=== PATIENT | male | born 1960 | race Caucasian/White ===

== ENCOUNTER 2017-02-11 16:02 | Inpatient (IN) | payer MEDICARE, OTHER ==
[~2017-02-11] VITALS: Ht 188 cm; Wt 147.6 kg
[2017-02-11 16:03] VITALS: BP 148/89; PULSE 98; RESP 15; O2SAT 97
--- NOTE | 2017-02-11 16:07 | ED.REPORT ---
HPI-Chest Pain 40 and Over Date of Service Feb 11, 2017 ED Provider: Jeronimo Hutchinson DO Patient is a 57 year old male with a hx of CAD s/p 5 stents and DM who presents to the ED via EMS complaining of L sided chest pain onset 1400 this afternoon. His pain is accompanied by pressure, rated a 7/10 in severity, and radiates to his jaw and shoulders. Associated symptoms include diaphoresis. Patient reports that this pain feels like when he has had a heart attack previously. He reports that nitro drips work best for his chest pain and his last admission for chest pain was in Jul-August at [facility]. He denies vomiting, headache, vision changes, numbness, focal weakness, fever, chills, or any other symptoms. He had 324mg ASA, Nitro x1, and morphine 10mg [employer]. Patient's last stress test was 7 mo ago. 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 His PCP recently took him off of all of his medications except isosorbide, insulin, and ASA. Nursing Notes Stated Complaint: CHEST PAIN Chief Complaint: Chest Pain Nursing Notes Reviewed: Yes Allergies: Coded Allergies: hydroxyzine (Verified Allergy, Unknown, 02/11/17) meperidine (Verified Allergy, Unknown, 02/11/17) General Time Seen by MD: 16:06 Chief Complaint Chest pain Hx Obtained From: Patient Arrived By: Ambulance Sudden in Onset?: Yes Onset Occurred: 1 - 4 hours ago Symptom Duration: Since onset Location: : Chest left Quality: Painful, Pressure Radiation: : Jaw: Shoulder left: Shoulder right Severity: Current: Severe Severity: Maximum: Severe Similar Sx Previous: Yes Risk Factors )( CAD Risk Stratification Known CADNo Hypertension Risk factors reviewed )( TAD Risk Stratification No Hypertension, No Risk factors reviewed )( PE Risk Stratification No , No , No Previous DVT, No Previous PE Risk factors reviewed HEART Score HEART for MACE Score: 4-7 (mod risk 12%-16.6%) (5) Past Medical History Past Medical History CAD DM Past Surgical History 5 stents CABG Bilat knee surg shoulder surg ankle Reports: Appendectomy, Tonsillectomy Smoking History Never Smoker Social History Alcohol Use: "Social" Drug Use: Denies drug use 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 Physical Exam Initial Vital Signs Vital Signs (First) Date Time Temp Pulse Resp B/P Pulse Ox O2 Delivery O2 Flow Rate FiO2 02/11/17 16:03 37.0 98 15 148/89 97 Room Air Initial VS: Reviewed, Vital signs abnormal Head / Eyes: Atraumatic, Normocephalic Skin: Warm, Dry Neurologic: Alert, Oriented, Nonfocal Psychiatric: Mood/affect normal, Behavior normal, Normal thought content General/Constitutional: Awake, Alert Distress / Hydration: Positive: Distress severe Appearance / Presentation: Positive: Obese Uncomfortable Respiratory / Chest: Atraumatic, Breath sounds NL, Breath sounds = bilat, No respiratory distress Cardiovascular: Heart rate NL, Regular rhythm, Heart sounds NL Lower Ext Edema: Positive: Bilateral 1+ Abdomen: Atraumatic, Soft, Non-tender Neck: Atraumatic, Supple, Full range of motion, No JVD Interpretation & Diagnostics Lab Results Interpretation Result Diagram: 02/11/17 1635 02/11/17 1635 Test 02/11/17 16:35 White Blood Count 8.4th/mm3 (3.8-10.1) Red Blood Count 5.09mil/mm3 (4.40-5.80) Hemoglobin 15.6g/dL (13.8-17.2) Hematocrit 45.8% (41.0-50.0) Mean Corpuscular Volume 90.0fL (81-100) Mean Corpuscular Hemoglobin 30.6pg (27.0-35.0) Mean Corpuscular Hemoglobin Concent 34.1% (32.0-37.0) Red Cell Distribution Width 14.0% (12.3-15.4) Platelet Count 250bil/L (150-400) Neutrophils (%) (Auto) 51.9% (40-74) Lymphocytes (%) (Auto) 31.3% (14-46) Monocytes (%) (Auto) 13.7% (4-12) Eosinophils (%) (Auto) 2.1% (0-5) Basophils (%) (Auto) 0.6% (0-3) Prothrombin Time 10.5sec (8.1-12.5) Prothromb Time International Ratio 0.98ratio Magnesium Level 2.0mg/dL (1.6-2.6) Hold Jeffers Top Tube Received (Received) ECG Interpretation ECG Interpretation: Sinus rate 99 anterior Q waves Time: 16:08 Interpreted by: ED physician ECG Interpretation: Sinus rate 92 unchanged from prior Time: 17:05 Interpreted by: ED physician X-Ray Chest Interpretation Chest Xray Interpretation: IMPRESSION: 1. Low lung volumes with vascular crowding versus mild pulmonary edema. Bibasilar atelectasis or consolidation are also present. Recommend a repeat PA and lateral study when clinically feasible. Dictated by: Naeem Gonzalez M.D. on 02/11/2017 at 17:07 Approved by: Naeem Gonzalez M.D. on 02/11/2017 at 17:11 View: Portable, 1 view Interpretation / Wet Read by: Interpret - Radiologist Re-Eval/Medical Decision Med Decision/Clinical Course Unstable angina in a patient with a known cardiac history. Nitroglycerin drip was initiated almost immediately after I evaluated the patient. Patient is also started on heparin, given metoprolol, Plavix, atorvastatin. Cardiology was contacted after the patient is requiring high doses of narcotics and IV nitroglycerin with little relief in his ongoing chest pain. Serial EKGs do not show any evidence of ST elevation GA. The patient will be admitted to critical care on nitroglycerin drip with plans for a urgent cardiology consult for probable angiography. Time of Eval: 16:58 Patient Status: Mild relief Re-Evaluation/Progress Note: Rechecked pt who is feeling slightly better. Time of Eval: 17:44 Re-Evaluation/Progress Note: Rechecked pt. Discussed plan for admission. Patient understands and agrees with plan. All questions addressed at this time. Consultation #1: Referral / Consult Name: Allen Dickerson MD Consulted With: Cardiology Call Returned at: 17:32 Note: Discussed pt's case. Requests consult with Dr. Hollis. Consultation #2: Referral / Consult Name: Eric Gomez MD Consulted With: Hospitalist Call Returned at: 17:[address]: Will see patient, Agrees with eval, Agrees with plan, Accepts admit Note: Discussed pt's case. Accepts admit. Consultation #3: Referral / Consult Name: Ermias Hollis MD Consulted With: Hospitalist Call Returned at: 17:[address]: Will see patient, Agrees with eval, Agrees with plan Note: Discussed pt's case. Will see pt. Counseled Regarding: Diagnosis, Lab results, Need for admission Discharge & Departure Primary Impression: Unstable angina Disposition: ADMITTED TO HOSPITAL Discharge Condition All VS Reviewed: Yes Condition: Stable Crit Care Except Billable Proc Time Spent: 75-104 minutes Services Performed: Patient management by me, Time spent at bedside, Reviewing test results Critical Care Notes: 88 minutes Scribe Attestation Portions of this note were transcribed by Abeba Langston. I, Dr. Hutchinson personally performed the history, physical exam and medical decision-making; I reviewed and confirmed the accuracy of the information in the transcribed note. Signed: Darrin Sepulveda, 02/11/17 EvangelinaJeronimo Divya JUDD Feb 11, 2017 16:07 ABEBA LANGSTON Feb 11, 2017 16:17 drip was initiated almost immediately after I evaluated the patient. Patient is also started on heparin, Time of Eval: 16:58 Patient Status: Mild relief Re-Evaluation/Progress Note: Rechecked pt who is feeling slightly better. Time of Eval: 17:44 Re-Evaluation/Progress Note: Rechecked pt. Discussed plan for admission. Patient understands and agrees with plan. All questions addressed at this time. Consultation #1: Referral / Consult Name: Allen Dickerson MD Consulted With: Cardiology Call Returned at: 17:32 Note: Discussed pt's case. Requests consult with Dr. Hollis. Consultation #2: Referral / Consult Name: Eric Gomez MD Consulted With: Hospitalist Call Returned at: 17:[address]: Will see patient, Agrees with eval, Agrees with plan, Accepts admit Note: Discussed pt's case. Accepts admit. Consultation #3: Referral / Consult Name: Ermias Hollis MD Consulted With: Hospitalist Call Returned at: 17:[address]: Will see patient, Agrees with eval, Agrees with plan Note: Discussed pt's case. Will see pt. Counseled Regarding: Diagnosis, Lab results, Need for admission Discharge & Departure Primary Impression: Unstable angina Disposition: ADMITTED TO HOSPITAL Discharge Condition All VS Reviewed: Yes Condition: Stable Crit Care Except Billable Proc Time Spent: 75-104 minutes Services Performed: Patient management by me, Time spent at bedside, Reviewing test results Critical Care Notes: 88 minutes Scribe Attestation Portions of this note were transcribed by Abeba Langston. I, Dr. Hutchinson personally performed the history, physical exam and medical decision-making; I reviewed and confirmed the accuracy of the information in the transcribed note. Signed: Darrin Sepulveda, 02/11/17 Jeronimo Hutchinson DO Feb 11, 2017 16:07 ABEBA LANGSTON Feb 11, 2017 16:17
[2017-02-11] MEDS ORDERED: Ondansetron 2 mg/mL 2 mL Inj IVPUSH PRN ×2 (16:25→17:50)
[2017-02-11] MEDS: HYDROmorphone 1 mg/mL Inj IVPUSH PRN ×2 (16:36→17:32)
[2017-02-11] MEDS: Nitroglycerin 50 mg/250 mL D5W 50,000 MCG in IV Premix 1 EACH IV SCH (16:40)
[2017-02-11 16:42] VITALS: BP 127/82; PULSE 94; RESP 16; O2SAT 94
[2017-02-11 16:58] LABS: BASOPHILS % (AUTO) 0.6 % (0-3); EOSINOPHILS % (AUTO) 2.1 % (0-5); MONOCYTES % (AUTO) 13.7 % (4-12); Mean Corpuscular Hemoglobin 30.6 pg (27.0-35.0); NEUTROPHILS % (AUTO) 51.9 % (40-74); Platelet Count 250 bil/L (150-400)
--- NOTE | 2017-02-11 17:12 | DRSVH ---
PROCEDURE: X-RAY CHEST ONE VIEW, PORTABLE ([id number]) INDICATIONS: Chest pain TECHNIQUE: One view of the chest was acquired. COMPARISON: None. FINDINGS: Surgical changes and devices: None. Lungs and pleura: No pleural effusions or pneumothorax. There are low lung volumes. There is mild pulmonary vascular prominence which may be due to vascular crowding or mild edema. Medial retrocardi ac opacities are also present which may represent atelectasis this. Mediastinum: Mediastinal contours appear prominent likely due to low volumes. Heart size is normal. Bones and chest wall: No suspicious bony lesions. Overlying soft tissues appear unremarkable. IMPRESSION: 1. Low lung volumes with vascular crowding versus mild pulmonary edema. Bibasilar atelectasis or co nsolidation are also present. Recommend a repeat PA and lateral study when clinically feasible. Dictated by: Naeem Gonzalez M.D. on 02/11/2017 at 17:07 Approved by: Naeem Gonzalez M.D. on 02/11/2017 at 17:11
[2017-02-11 17:14] LABS: INR 0.98 ratio
[2017-02-11 17:17] LABS: TROPONIN T < 0.010 ug/L (0.0-0.011)
[2017-02-11] MEDS ORDERED: Heparin 5,000 Unit/mL Inj IVPUSH ONE (17:30)
[2017-02-11] MEDS ORDERED: Heparin 25K Unit/500mL 0.45 NS 25,000 UNIT in IV Premix 1 EACH IV ONE (17:30)
[2017-02-11] MEDS ORDERED: Polyethylene Glycol (PEG) 17 Gm Powder PO PRN (17:50)
[2017-02-11] MEDS: Sodium Chloride LOK Flush 10 mL Syringe IVFLUSH SCH ×2 (17:59→23:32)
--- NOTE | 2017-02-11 18:10 | PCM.HPMED ---
Subjective Date of Service Feb 11, 2017 Primary Provider: Admitting Physician: Eric Gomez MD Primary Care Physician: [facility] Attending Physician: Eric Gomez MD Admit Status: From the Emergency Department, Full Admit, Critical Care Chief Complaint: Chest pain History of Present Illness: This is a 49-year-old male recently moved to [place] to his had 5 coronary stents . He states this all happened in [place] prior to his move. He was recently seen at [facility] and they stopped all his cardiac medications for unclear reasons. The patient notes that he is still taking his diabetes medications, and Lyrica as well as aspirin. He developed chest pressure today while at rest. This began around 2:30 this afternoon describes a chest pressure which was constant and radiated to the jaw and shoulder blades bilaterally. He also became diaphoretic. The pain was not positional nor was increased with deep breathing. He did not feel lightheaded or nauseated. The patient called the ambulance was brought to the emergency department. A nitroglycerin drip was started and this did help diminish the pain as did pain medications. This pain does feel typical for his previous chest pain episodes. The patient is a very vague historian. He denies recent dyspeptic symptoms. He also denies recent exertional chest pain or dyspnea on exertion. His ECG was fairly unremarkable. The patient was started on heparin and discussed with cardiology. He is yet to be seen by cardiology. Review of Systems: He denies recent fevers chills, rhinorrhea. No diarrhea, constipation or blood per rectum. No difficulty urinating. He does have chronic edema but denies heart failure. He denies kidney disease. All else reviewed and otherwise unremarkable except as noted in the history of present illness Allergies Coded Allergies: hydroxyzine (Verified Allergy, Intermediate, BLOTCHES, 02/11/17) meperidine (Verified Adverse Reaction, Severe, RESPIRATORY FAILURE, 02/11/17 ) Home Medications Aspirin one half of a baby aspirin a day. Metformin unknown dose twice a day. Lyrica unknown dose twice a day. Fish oil unknown dose daily. PMH Coronary artery disease with a stated history of 5 coronary stents. Diabetes mellitus 2 Diabetic peripheral neuropathy Obesity Surgical History Bilateral knee replacements, appendectomy, right ankle surgery, coronary artery bypass grafting. Family History Negative for CAD. Social History Hx Alcohol Use: Yes (socially) Hx Substance Use: No Smoking Status: Never Smoker Living Arrangement: with Family Exam Vital Signs Vital Sign - Last Date Time Temp Pulse Resp B/P Pulse Ox O2 Delivery O2 Flow Rate FiO2 02/11/17 16:42 94 16 127/82 94 Room Air 02/11/17 16:03 37.0 Exam Oriented 3. No distress. Fluent speech. Normal affect. Normal skull. Normal nose and ears. Anicteric sclera, symmetric pupils Oropharynx is unremarkable, no facial droop. Neck is supple, normal thyroid. No adenopathy. Lungs are clear, normal effort rate. Heart is regular without murmur gallop or rub. Abdomen soft, distended, nontender Extremities are free of pedal edema. Good radial and pedal pulses. Skin is free of rash, lesions. No petechiae or ecchymosis. Joints are grossly normal. Cranial nerves are grossly normal. Motor strength is normal in all extremities. Normal muscular tone. Neuro patient is somewhat obtuse and slow to answer questions. He is obese and has a very protuberant abdomen. Bilateral knee scars. Lab and Diagnostics Result Diagram: 02/11/17 1635 02/11/17 1635 X-Rays, CTs and MRIs Chest x-ray is low lung volumes otherwise unremarkable. 12-lead ECG Normal sinus rhythm without ST segment changes. Assessment & Plan 1. Unstable angina, present on admission and active. The patient will be maintained on dual antiplatelet agents beta-blockade heparin and nitro drip. We will trend troponins. Cardiology consult has been requested. 2. Coronary artery disease, present on admission and presumably active. Plan as above 3. Morbid obesity, present on admission active 4. Diabetes mellitus 2, present on admission and active. We will use at bedtime Lantus and correction of lispro check A1c 5. Peripheral neuropathy, present on admission and active. Will resume usual medications when these are ascertained. Patient is full resuscitation. Admitted to CCU (nitro drip), inpatient status with a length of stay of over 2 nights expected. Time spent 50 minutes Eric Gomez MD Feb 11, 2017 18:10
[2017-02-11] MEDS ORDERED: Glucose 40% Oral Gel 15 Gm Tube PO PRN (18:15)
[2017-02-11 18:46] LABS: TROPONIN T < 0.010 ug/L (0.0-0.011)
[2017-02-11 18:51] VITALS: BP 110/65; PULSE 97; RESP 10; O2SAT 97
[2017-02-11 18:54] LABS: Creatine Kinase 55 U/L (21-232)
[2017-02-11] MEDS ORDERED: LidocaineVisc 2%:Antacid 1:1 120 mL Suspension PO ONE (19:50)
[2017-02-11] MEDS ORDERED: OMEG-38 PO (20:04)
[2017-02-11] MEDS ORDERED: LIRA0.6P2 SQ (20:04)
[2017-02-11] MEDS ORDERED: INSU100V7 SUBQ (20:04)
[2017-02-11] MEDS ORDERED: ASPI325T32 PO (20:04)
[2017-02-11] MEDS ORDERED: PREG225C PO (20:04)
[2017-02-11] MEDS ORDERED: NOV100I SUBQ (20:04)
[2017-02-11] MEDS ORDERED: ISOS120T6 PO (20:04)
[2017-02-11] MEDS ORDERED: Heparin 5,000 Unit/mL Inj IVPUSH PRN (20:35)
[2017-02-11] MEDS ORDERED: Heparin 25K Unit/500mL 0.45 NS 25,000 UNIT in IV Premix 1 EACH IV SCH (20:35)
[2017-02-11 21:25] LABS: Creatine Kinase 53 U/L (21-232)
[2017-02-11] MEDS: Insulin LISPRO 300 Unit/3 mL Inj SUBQ SCH (21:54)
[2017-02-11] MEDS: Insulin GLARgine 100 Unit/mL Syringe SUBQ SCH (21:55)
[2017-02-11 22:00] VITALS: RESP 15
[2017-02-11] MEDS: HYDROcodone-APAP 5-325 mg Tablet PO PRN ×2 (22:40→23:33)
--- NOTE | 2017-02-11 22:52 | CONS ---
[address] [address] CONSULTATION REPORT PATIENT: MEETA LUNA : 1960 MR#: [id number] ADMIT: 02/11/2017 JOB ID: [id number] CARDIOLOGY CONSULTATION--URGENT INITIAL INPATIENT EVALUATION: DATE OF SERVICE: 02/11/2017 CONSULTING PHYSICIAN: Cardiology, Ermias Hollis MD. PROBLEMS: 1. Chest pain: a. Severe unremitting chest pain unresponsive to nitroglycerin at moderate to high dose. b. ECG near normal. c. Initial troponin not elevated twice. d. Consider ACS--atypical presentation. e. Note multiple recent prior episodes of severe chest pain evaluated at [facility] without apparent active coronary disease identified. 2. Coronary artery disease (CAD): History of five stents in LAD. The most recent cath, June 2016, said to be unremarkable for severe coronary lesions. CORONARY ARTERY DISEASE RISK FACTORS: Diabetes--insulin dependent; sequelae include: 1. Peripheral neuropathy. 2. History of hypertension. 3. History of hyperlipidemia. 4. No family history of premature coronary disease. 5. Lifetime nonsmoker. OTHER PROBLEMS: 1. Morbid obesity. 2. PRANEETH--obstructive sleep apnea, using CPAP. CHIEF COMPLAINT: Chest pain. HISTORY OF PRESENT ILLNESS: PRESENTATION: I am glad to meet this 57-year-old man who presented to the emergency department today by EMS coming from his home in [place]. He developed the sudden onset of severe (intensity 8 on a scale of 10) retrosternal chest discomfort at rest while watching TV this afternoon. He describes the chest discomfort as with both typical features including retrosternal chest discomfort radiating to the neck; but also atypical features including sharp knife-like, "like a garnett mechanic knife through my chest." There was mild diaphoresis and dyspnea, but no nausea. The chest discomfort remains mild to moderate in severity despite NTG at substantial doses up to 75 mcg/minute. NTG SL did not help significantly. He is otherwise clinically stable. He describes to me that he has episodes of chest discomfort that are sudden onset at rest and severe every several months. They are unremitting for several days, then clear. In between his episodes of chest discomfort and including recently for the last several months since his last episode in "August to October time frame," he has been fully active functional class 1 without effort related symptoms or effort limitation. His activities include vigorous "spin class" on bicycle without any difficulty. His symptoms today are similar to those previously. He does not feel that the symptoms represent indigestion or GI symptoms; and he notes that after his last episode he had extensive workup for reflux including esophageal manometry that he says was perfectly unremarkable. CARDIAC HISTORY: Regarding congestive heart failure, he has no history of heart failure, current symptoms of congestion including chronic dyspnea, exertional dyspnea, nocturnal dyspnea. He does have some edema that he attributes to association with his diabetic peripheral neuropathy. Regarding arrhythmia, he has known PVCs, "in strings of 4-5"; but no sustained tachy, palpitation, or other symptoms of arrhythmia such as presyncope or syncope. Regarding other possible underlying vascular disease, there is no history of CVA or current symptoms of TIA. No claudication at vigorous activity. Regarding possible dual antiplatelet therapy, he does not have any current bleeding symptoms; no upcoming anticipated surgery; and he reports he is reliable to take mandatory medicines as needed. PAST CARDIAC HISTORY: After extensive efforts, we were able to obtain some outside records from his care which has primarily been through the [facility] system including at the [facility] and [facility]. The records indicate multiple similar episodes of chest discomfort in 2017 following his most recent catheterization in June 2016 that was reassuring. The episodes of chest discomfort occurred in September, October, and November 2016, and apparently were felt to be noncardiac. In fact, there were efforts made to down titrate his cardiac medical therapy. The records also indicate: History of stents in LAD x5, last in 2011. The patient reports these were initially in [place], [place]. Then, in [place] near [place]. Cath in [place], November 2015, said to show left main normal, LAD patent stent with 10% mid vessel stenosis; then LCX no stenosis, then RCA 20% proximal stenosis, then ramus normal, and EF 70%. Myocardial perfusion scan at rest on March 13, 2016 said to demonstrate small perfusion defect in the basal and mid segments of inferior wall obtained only at rest during chest pain. Echocardiogram, March 2016, with no LVH, EF 70%. No wall motion abnormality. Note that during the admissions for chest pain, troponins were all repeatedly not elevated. ALLERGIES: Allergies reported to: 1. HYDROXYZINE. 2. MEPERIDINE. I elicit no history of allergy to medical contrast; or to seafood, fish, iodine, or shellfish. MEDICATIONS: Isosorbide mononitrate-ER 120 mg daily, omega-3 fish oil, ASA 325 mg daily, pregabalin 225 mg b.i.d., insulin NovoLog 4 units subcu t.i.d. with meals, insulin glargine 120 units subcu, liraglutide 1.8 mg subcu h.s., Plavix 75 mg p.o. daily--previously discontinued, metoprolol tartrate 25 mg p.o. PAST MEDICAL HISTORY: Bilateral knee replacements, appendectomy, right ankle "reconstruction." REVIEW OF SYSTEMS: I questioned him about a 13 point review of systems, which is unremarkable, noncontributory, or negative except as noted including: He reports some weight loss. No history of thyroid disorder. No history of lung disorder, including asthma, wheezing, or COPD. No history of GI disorder, including indigestion, hepatitis, jaundice, or ulcer. No history of genitourinary disorder or prostate symptoms. PERSONAL AND SOCIAL HISTORY: Alcohol: Reports little to no alcohol use. He lives in [place]. He is a retired medic. FAMILY HISTORY: He reports no family history of premature coronary disease. PHYSICAL EXAMINATION: General appearance: Pleasant, well-developed, morbidly obese man who appears in no distress despite his report of ongoing moderate chest discomfort. He stutters, which he reports is chronic lifetime, stable. Vital signs: Blood pressure 110/65, with heart rate 97 (regular in sinus rhythm on telemetry). Respiratory rate 15 and unlabored with SpO2 97% on 2 L nasal cannula. Afebrile. Weight 148 kg. Neurologic and mental status: No overt focal neurologic defect noted. He is alert, oriented, appropriate, and conversant. HEENT: PERRL, conjunctivae pink. Sclerae not icteric. Mouth and mucous membranes intact with intact dentition. Neck: Carotid upstroke difficult to feel due to body habitus, but no bruit bilaterally. Jugular venous pressure difficult to evaluate due to body habitus, but not overtly elevated. No palpable thyromegaly. No palpable cervical lymphadenopathy. Lungs: Clear to auscultation bilaterally including preserved forced expiratory time. Cardiac: No chest wall tenderness. Cardiac examination otherwise notable for distant heart sounds, regular rhythm, S4 gallop, and there is no loud murmur heard. Abdomen: Obese and otherwise unremarkable without tenderness, mass, hepatosplenomegaly, or bruit of abdominal aortic aneurysm. Extremities: Intact without pitting edema, but with some brawny edema. Dorsalis pedis pulse is strong bilaterally. DIAGNOSTIC STUDIES: Electrocardiogram: The admitting ECG shows sinus rhythm at 92 BPM, mild NS ST-T abnormalities, but not definitely outside normal limits; and overall very unremarkable in association with his current ongoing chest discomfort. Chest x-ray: The chest x-ray shows borderline cardiomegaly; but there does appear to be pulmonary venous congestion and heart failure. Note, reports of prior outside x-rays were similar. LABORATORY: CBC includes WBC 8400 with hemoglobin 15.6, hematocrit 45.8, normal indices, and platelet count 250,000. Chemistries include potassium 4.6 with BUN 14, creatinine 0.67, glucose 96. Liver function tests mildly abnormal with AST 55, ALT 72, and alkaline phosphatase 153. Cardiac markers include troponin not elevated. On three measurements, less than 0.010, with CK total not elevated, 55. ASSESSMENT: I discussed the findings, impressions, and management considerations with him, as well as with the primary hospitalist team (including Dr. Gomez, Dr. Cramer, and Dr. Rose) including: Chest pain--ongoing severe chest pain despite NTG IV, but atypical scenario: 1. He has severe chest discomfort; however, there are no objective correlates of ischemia on the ECG, early serial troponins. 2. Despite initial concern for unremitting chest discomfort and consideration of early catheterization, the overall picture seems consistent with his multiple recent prior episodes that from the outside records appear to be considered of unknown etiology, but not representing active coronary disease even though he has a history of apparent prior known coronary artery disease with percutaneous coronary intervention of LAD. Since he is new to our system, there was consideration of early catheterization; but with all the data in mind, I elected not to proceed emergently to catheterization. So far, he appears to be clinically stable without evidence of evolving ischemia or cardiac injury. My estimate is low likelihood of active coronary disease. At the same time, the etiology of his severe chest discomfort is not entirely clear. Therefore, plan close observation and early response if there are other objective signs of ischemia. RECOMMENDATIONS: 1. OMT--guideline directed optimal medical therapy including ASA 81 mg daily; metoprolol; IV NTG, but may up titrate or decrease later empirically; and consider ANNABELLA inhibitor; and high-intensity statin regimen. 2. Consider myocardial perfusion scan when stable. 3. Rule out myocardial infarction protocol--ongoing close observation including serial troponin and ECGs. 4. Please reconsult if further concern for objective ischemia rises. 5. Your ongoing evaluation to elucidate any other possible underlying cause of his symptoms including your evaluation for pulmonary embolus, aortic dissection, or gastrointestinal etiologies (all of which appear unlikely). 6. Echocardiogram. 7. 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
[2017-02-12] VITALS (9 sets, daily range): BP systolic 100–129; BP diastolic 51–78; PULSE 74–83; RESP 12–19; O2SAT 90–96
[2017-02-12] MEDS: Nitroglycerin 50 mg/250 mL D5W 50,000 MCG in IV Premix 1 EACH IV SCH (02:03)
--- NOTE | 2017-02-12 02:33 | NUR ---
admit note pt received from er to ccu room 2010 just prior to plant operator/shift supervisor starting at 1900, hospitalist and hatch boss in to see pt, pt a/o times three, mildly anxious, c/o 6/10 left sided chest pain radiating to his scapula bilaterally, ekg done, ekg delayed few minute per RT due to pt being on the phone, no changes seen, md aware of results, gi cocktail given per md order, pt states discomfort unchanged, iv morphine given and pt states pain decreased from 6 to 5, ntg gtt continued t/o night 75-85mcg/min, bp low normal, po pain meds given when pt asked for more pain meds and iv morphine not due yet, md wanted to keep morphine dose q4hrs prn, md aware pt c/o chest discomfort continued through night, pt dozing intermittently, troponin /ck/ckmb negative times three so far, am labs ordered, heparin gtt per cardiac protocol, lab having a difficult time being able to do lab draw, pt difficult stick, no s/sx of bleeding, nonpitting ankle edema, left second toe with pressure ulcer, wound care consult done, denies n/v, abd round/soft, denies sob, ls- cl/decreased, sats on two liters o2 per nc=95-96%, pt placed on cpap overnight, sats on cpap=93-94%, see assessment charting, see ccu flow sheet, plan: monitor lab results, treat cp as appropriate, Addendum: 02/12/17 at 0620 by ANUPAM SALGADO RN paged with enz/troponin results neg, Addendum: 02/12/17 at 0643 by ANUPAM SALGADO RN order received to wean ntg gtt since enzymes and troponin negative, as charted earlier aware of pt c/o left cp, po pain meds took pain away during night and pt able to sleep for good three hours at a time,
[2017-02-12] MEDS: HYDROcodone-APAP 5-325 mg Tablet PO PRN (04:42)
[2017-02-12 04:52] LABS: BASOPHILS % (AUTO) 0.6 % (0-3); EOSINOPHILS % (AUTO) 2.2 % (0-5); MONOCYTES % (AUTO) 10.3 % (4-12); Mean Corpuscular Hemoglobin 30.8 pg (27.0-35.0); Mean Corpuscular Volume 90.6 fL (81-100); NEUTROPHILS % (AUTO) 52.8 % (40-74); Platelet Count 267 bil/L (150-400)
[2017-02-12 05:31] LABS: Creatine Kinase 46 U/L (21-232)
[2017-02-12] MEDS: Insulin LISPRO 300 Unit/3 mL Inj SUBQ SCH ×4 (07:49→21:27)
[2017-02-12] MEDS: Sodium Chloride LOK Flush 10 mL Syringe IVFLUSH SCH ×2 (07:50→16:30)
--- NOTE | 2017-02-12 10:12 | DRSVH ---
[facility] [address] [place] [address] Echocardiogram Report Name: MEETA LUNA KStudy Date: Height: 74 in Hospital Exam Location: [facility] Weight: 321 lb Gender: Male BSA: 2.7 m2 : 1960 Age: 57 yrs BP: 105/60 m mHg Reason For Study: Unstable Angina Ordering Physician: HOSPITALIST [facility] Performed By: Krista Davalos Referring Physician: LUZ MARIA HERNANDEZ Interpretation Summary The study quality was technically difficult. The left ventricle is grossly normal size. The ejection fraction is estimated to be 50-55%. Suspect mid posteriolateral wall hypokinesis. The right ventricle is grossly normal size. Right ventricular systolic function is at the lower limits of normal. There is mild tricuspid regurgitation. The right ventricular systolic pressure is estimated at 24 mmHg assuming a right atrial pressure of 8 mm Hg. Procedure: A two-dimensional transthoracic echocardiogram with color flow and Doppler was performed. The study quality was technically difficult. A contrast injection of Definity was performed to improve assessment of LV function. There is no prior echocardiogram noted for this patient. The patient was in normal sinus rhythm during the exam. Left Ventricle: The left ventricle is grossly normal size. Left ventricular wall thickness is mildly increased. The ejection fraction is estimated to be 50-55%. Suspect mid posteriolateral wall hypokinesis. Assessment of diastolic parameters indicates a relaxation abnormality of the left ventricle, consistent with normal filling pressures. Right Ventricle: The right ventricle is grossly normal size. Right ventricular systolic function is at the lower limits of normal. Atria: The left atrial size is normal. Right atrium not well visualized. Mitral Valve: The mitral valve leaflets appear mildly thickened, but open well. There is mild mitral annular calcification. The mitral valve leaflets are slightly calcified. There is trace mitral regurgitation. Aortic Valve: The aortic valve is trileaflet. The aortic valve opens well. There is no aortic valve stenosis. No aortic regurgitation is present. Tricuspid Valve: The tricuspid valve is not well visualized, but is grossly normal. There is mild tricuspid regurgitation. The right ventricular systolic pressure is estimated at 24 mmHg assuming a right atrial pressure of 8 mm Hg. Pulmonic Valve: The pulmonic valve is not well seen, but is grossly normal. There is trace pulmonic regurgitation. Great Vessels: The aortic root is normal size. The ascending aorta is normal in size. The IVC is of normal diameter and collapses less than 50% with a sniff. This suggests a right atrial pressure of 8 mm Hg. Pericardium/ Pleura There is no pericardial effusion. There is an anterior echo-free space consistent with a fat pad. There is no pleural effusion. MMode/2D Measurements & Calculations LVIDd: 4.4 cm LA A2 area LVOT diam LV west. diameter/BSA LVIDs: 3.1 cm (cm/m^2): 1.7 FS: 29.2 % Ao root diam IVSd: 1.3 cm LA A4 area LVPWd: 1.0 cm asc Aorta LA length Diam: 3.6 cm (vol): 5.2 cm LA vol: 14.4 ml LA vol index : 5.4 ml/m2 LV sys. diameter/BSA TAPSE: 1.8 cm (cm/m^2): 1.2 Doppler Measurements & Calculations Ao V2 max MV E max jeff MV E/A: 0.98 TR max jeff : 94.1 cm/sec : 62.4 cm/sec Med Peak E' Jeff : 201.6 cm/sec Ao max PG MV A max jeff TR max P.3 mmHg : 3.5 mmHg : 63.5 cm/sec E/E' med: 8.4 Ao mean PG Lat Peak E' Jeff LVOT Max Jeff E/E' lat: 7.5 : 83.8 cm/sec E/e' average: 8.0 PAVEL(I,D): 3.9 cm sev ratio MV dec time Ao V2 mean LV V1 max PG PAVEL indexed to BSA : 0.19 sec : 67.6 cm/sec (cm^2/m^2): 1.5 Ao V2 VTI LV V1 VTI: 15.8 cm PAVEL(V,D): 4.2 cm2 Reading Physician:EARLINE
--- NOTE | 2017-02-12 12:36 | PCM.PNMED ---
Subjective Date of Service Feb 12, 2017 Subjective He continues to elevate out of 10 chest pain. No EKG changes and negative troponins 3. Dr. Hollis is going to see him later this morning and is considering the probable stress test tomorrow. The patient denies any nausea or diaphoresis. No dyspnea. No abdominal pain or dyspepsia. No diarrhea. No overnight events noted. Exam Vital Signs Vital Sign - Last Date Time Temp Pulse Resp B/P Pulse Ox O2 Delivery O2 Flow Rate FiO2 02/12/17 08:00 37.1 80 16 100/51 95 Nasal Cannula 1.50 Intake and Output 02/11/17 02/11/17 02/12/17 Cumulative From/Thru 15:00 23:00 07:00 02/11/17 16:03 - 02/12/17 06:10 Intake Total 740 ml 1118 ml 1858 ml Output Total 750 ml 750 ml Balance 740 ml 368 ml 1108 ml Intake Oral 40 ml 600 ml 640 ml IV Total 700 ml 518 ml 1218 ml Output Urine Total 750 ml 750 ml # Bowel Movements 0 0 Exam Alert and oriented -3, no distress. Fluent speech Anicteric sclera. Lungs are clear with normal rate and effort Heart is regular without murmur gallop or rub Abdomen soft nontender, flat Extremities are free of edema. Skin is free of rash or lesions. IVs and Medications Medications Reviewed: Medications were reviewed in detail Lab and Diagnostics Result Diagram: 02/12/17 0445 02/11/17 1817 X-Rays, CTs and MRIs Chest x-ray is low lung volumes otherwise unremarkable. 12-lead ECG Normal sinus rhythm without ST segment changes. Assessment & Plan 1. Unstable angina, present on admission and active. We will continue medical therapy. The patient is on a heparin drip. We will discuss the plan with Dr. Hollis. He is indicated no angiogram at this point. We will feed the patient and anticipate a possible Lexiscan tomorrow morning. 2. Coronary artery disease, present on admission and presumably active. Plan as above, no changes. 3. Morbid obesity, present on admission active 4. Diabetes mellitus 2, present on admission and active. We will use at bedtime Lantus and correction of lispro check A1c 5. Peripheral neuropathy, present on admission and active. Will resume usual medications when these are ascertained. Patient is full resuscitation. Admitted to CCU (nitro drip), inpatient status with a length of stay of over 2 nights expected. Eric Gomez MD Feb 12, 2017 12:36
[2017-02-12] MEDS: oxyCODONE-Acetamin 5-325 mg Tablet PO PRN ×3 (14:29→22:31)
--- NOTE | 2017-02-12 16:10 | NUR ---
Social Work Note: Initial Assessment Data& Assessment: EMR reviewed. OUTREACH AND EDUCATION SOCIAL WORKER met with pt at bedside to discuss discharge planning, OUTREACH AND EDUCATION SOCIAL WORKER Role explained and discharge planning checklist packet provided. John Mosley is a 57 year old male admitted on 02/11/2017 for unstable angina. Pt has Medicare and [employer] life insurance coverage and goes to the [facility] for primary care, pt states he is 100% service connected. Pt lives in [place] with his spouse and is independent with all ADL's at baseline. Pt does not use any DME for ambulation and drives at baseline. Pt does use a CPAP machine. He does not have HH or SNF hx. Pt does not have LTC insurance. OUTREACH AND EDUCATION SOCIAL WORKER requested a copy of pt's completed DPOA/AD paperwork. MD does not identify any concerns for pt capacity for self care at this time. Pt denies any needs at this time. OUTREACH AND EDUCATION SOCIAL WORKER to continue to follow if any pt needs or MD orders arise. Plan: Anticipated discharge home via POV when medically ready. Pt denies any needs at this time. OUTREACH AND EDUCATION SOCIAL WORKER to continue to follow if any pt needs or MD orders arise. MIR Ba Addendum: 02/12/17 at 1613 by AFSHAN AYERS Amended: Links added.
--- NOTE | 2017-02-12 16:41 | PROG NOTE ---
[address] [address] PROGRESS NOTE PATIENT: MEETA LUNA : 1960 MR#: [id number] ADMIT: 02/11/2017 JOB ID: [id number] DATE: 02/12/2017 DATE OF EVALUATION: Sunday, February 12, 2017. CARDIOLOGY CONSULTATION PROGRESS NOTE--FOLLOWUP INPATIENT VISIT: CONSULTING PHYSICIAN: Cardiology--Ermias Hollis MD. PROBLEMS: 1. Chest pain: a. Ongoing severe chest discomfort which is atypical and unremitting after high dose NTG IV. b. Probable noncardiac chest pain--This is the 5th episode since September, all very similar with many negative troponin. 2. Known CAD: a. Known coronary disease--past medical history of multiple CAD stenting (apparently the last in 2011 in [place]). HOSPITAL COURSE AND PROGRESS: Hospital day two. I am glad to see this 57-year-old man on Cardiology rounds today, along with the primary hospitalist team (Dr. Gomez). The patient has been overall unchanged overnight--which is to say he remains clinically stable with ongoing severe chest pain. The chest pain was not improved by high dose NTG IV; nor did it worsen when NTG IV was discontinued. MEDICATIONS: Medications reviewed includin. ASA. 2. Lipitor 40 mg q.i.d. 3. Plavix loaded. 4. Insulin. OBJECTIVE DATA: ECG: The ECG this morning, February 12, is unchanged and unremarkable without Q-waves and without significant NSST-T at all. LABORATORY: Laboratory intact with serial troponins and CK low. ASSESSMENT: I discussed the findings, impressions, and management considerations with him at length and with the hospitalist team (Dr. Gomez) includin. Chest pain--atypical scenario. In summary, he presented acutely yesterday with severe unremitting chest discomfort despite up-titrating NTG IV. This raised a question of need for emergent catheterization. However, on more full evaluation, it is clear that this represents his 5th episode this year of similar symptoms with severe chest discomfort of unclear etiology that does not appear to be acute coronary syndrome. We ultimately made the decision last night not to proceed with the risk of invasive procedures. Overall, it appears that this was a reasonable clinical decision in as much as he has remained stable without objective evidence of ongoing ischemia. I discussed this all at length with him. He is considerably frustrated not knowing the exact etiology or cure for his episodes of severe discomfort. I was optimistic that we are able to evaluate at least for life-threatening and severe active coronary disease. He has had substantial evaluation including recent esophageal manometry looking for other causes but this has been apparently reassuring but unrevealing. There is of course concern because of his known underlying CAD. We do not have all the details of that but it appears he has had extensive stenting of primarily only the LAD; and most recent catheterization was June 2016, that outside records indicated was reassuring as far as coronary anatomy. RECOMMENDATIONS: 1. Discontinue IV heparin. 2. Discontinue IV NTG. 3. Reassess Plavix which had been previously discontinued in as much as he apparently has not had stenting in the last year. 4. Consider evaluation and ongoing workup by his primary physician and primary cardiologists for other causes of his chest pain including noncoronary causes of chest pain. I discussed with him "cardiac syndrome X." For cardiac syndrome X consider treatment with amitriptyline and atenolol. He is interested in establishing cardiology care now that he has moved to this area from [place]; and I offered him followup in our cardiology clinic. Close ongoing followup and monitoring for the potential for active coronary disease in this patient who does have known underlying coronary disease. Myocardial perfusion scan--pharmacologic in a.m. Note that any ischemia evident on the perfusion scan does not likely correlate with his current symptoms; and I would have a high threshold for catheterization at this point.
--- NOTE | 2017-02-12 18:06 | NUR ---
Cardiac/Resp Patient consistently c/o left chest discomfort, always rating it 6/10. States, "it goes up and down". Executive Assistant To General Counsel aware and thinks it is "not cardiac". Nitro gtt weaned off per orders. heparin gtt stopped. Tele has been SR, 80s. Patient has generalized edema. Voiding per urinal, one time this shift. 500 Mls. Weaned off O2, but patient places his CPAP on for naps. Sats on RA, 96%. Lungs are decreased in bases. Patient has been OOB x1 to BSC. No BM. Encouraged to get OOB to chair, but declined. Planning for MIBI tomorrow. Patient knows to be NPO after MN.
[2017-02-12] MEDS: Insulin GLARgine 100 Unit/mL Syringe SUBQ SCH (21:27)
[2017-02-13 00:04] VITALS: BP 142/77; PULSE 81; RESP 16; O2SAT 91
[2017-02-13] MEDS: Sodium Chloride LOK Flush 10 mL Syringe IVFLUSH SCH ×2 (00:36→08:23)
[2017-02-13] MEDS: oxyCODONE-Acetamin 5-325 mg Tablet PO PRN ×2 (02:40→08:23)
--- NOTE | 2017-02-13 03:07 | NUR ---
Pain/Tele/NPO Q 4 pain meds to maintain pain at 4-5 , A&O x 3 using call light appropriately, Using hospital C-Pap, 13. Bedside glucose check 144, NPO for Mibi in AM. IV in left wrist problematic almost out of vein, re-placed in vein , re-dressed and re-enforced w tape. flushed clean.
[2017-02-13 04:13] VITALS: BP 113/65; PULSE 65; RESP 13; O2SAT 93
[2017-02-13] MEDS: Insulin LISPRO 300 Unit/3 mL Inj SUBQ SCH (08:00)
[2017-02-13 08:24] VITALS: BP 115/87; PULSE 73; RESP 14; O2SAT 94
[2017-02-13 08:58] VITALS: PULSE 81
--- NOTE | 2017-02-13 12:00 | NUR ---
Discharge Pt D/Cd home in stable condition. Reviewed new meds, follow up and MD instructions. Pt states he will not take metoprolol until discussing with his PCP, Dr Gomez and cardiology aware. PIV D/Cd intact. Discussed with pt the policy of staying on floor until his ride got there and he agreed, but then when staff was out of room, he left on his own with no staff esort. Rx hard copies with patient.
[2017-02-13 12:03] LABS: BASOPHILS % (AUTO) 0.5 % (0-3); EOSINOPHILS % (AUTO) 2.8 % (0-5); MONOCYTES % (AUTO) 9.5 % (4-12); Mean Corpuscular Hemoglobin 30.8 pg (27.0-35.0); Mean Corpuscular Volume 88.5 fL (81-100); NEUTROPHILS % (AUTO) 61.6 % (40-74); Platelet Count 225 bil/L (150-400)
[2017-02-13 12:25] VITALS: BP 124/84; PULSE 66; RESP 20; O2SAT 97
--- NOTE | 2017-02-13 12:58 | PCM.PNMED ---
Subjective Date of Service Feb 13, 2017 Subjective He feels much better today. His chest pain resolved last night. He has not had over 5 episodes similar to this where it takes some time for his pain resolved. He has had negative troponins here and multiple other admissions. No nausea, diaphoresis or shortness of breath. No overnight events noted. His stress test today indicates a reversible septal defect consistent with an LAD distribution. He does have known multiple stents in his LAD. Exam Vital Signs Vital Sign - Last Date Time Temp Pulse Resp B/P Pulse Ox O2 Delivery O2 Flow Rate FiO2 02/13/17 12:25 37.0 66 20 124/84 97 Room Air 02/12/17 21:03 2.00 Intake and Output 02/12/17 02/12/17 02/13/17 Cumulative From/Thru 15:00 23:00 07:00 02/11/17 16:03 - 02/13/17 06:59 Intake Total 772 ml 400 ml 3030 ml Output Total 500 ml 750 ml 2000 ml Balance 272 ml -350 ml 1030 ml Intake Oral 520 ml 400 ml 1560 ml IV Total 252 ml 1470 ml Output Urine Total 500 ml 750 ml 2000 ml # Voids 1 1 # Bowel Movements 0 Exam Alert and oriented -3, no distress. Fluent speech Anicteric sclera. Lungs are clear with normal rate and effort Heart is regular without murmur gallop or rub Abdomen soft distended. Extremities are 1+ edema Skin is free of rash or lesions. IVs and Medications Medications Reviewed: Medications were reviewed in detail Lab and Diagnostics Result Diagram: 02/13/17 1150 02/11/17 1817 X-Rays, CTs and MRIs Chest x-ray is low lung volumes otherwise unremarkable. 12-lead ECG Normal sinus rhythm without ST segment changes. Assessment & Plan 1. Chest pain, present on admission and resolved. We will continue medical therapy. Heparin and nitroglycerin drips have been discontinued. His stress test was discussed with . will see the patient today with further recommendations. As patient's strong desire to return home and medical management with close follow-up may be reasonable. 2. Coronary artery disease, present on admission and stable. Plan as above, no changes. 3. Morbid obesity, present on admission active 4. Diabetes mellitus 2, present on admission and active. We will use at bedtime Lantus and correction of lispro check A1c 5. Peripheral neuropathy, present on admission and active. Will resume usual medications when these are ascertained. Patient is full resuscitation. Stepdown to [facility], patient remains inpatient status. Discharge will depend on cardiology consultation and recommendations. Eric Gomez MD Feb 13, 2017 12:58
--- NOTE | 2017-02-13 13:15 | PCM.DIMED ---
Discharge Instructions Date of Service Feb 13, 2017 Dates of Hospitalization Feb 11, 2017 at 17:59 Discharge Diagnosis Discharge Diagnosis 1. Chest pain, resolved and anticipate a possible Lexiscan tomorrow morning. 2. Coronary artery disease, stable. Patient does have a reversible lesion and the stress test consistent with his LAD disease. He was seen by cardiology on the day of discharge and felt to be stable for medical management and close follow-up. 3. Morbid obesity, stable 4. Diabetes mellitus 2, stable 5. Peripheral neuropathy, stable Patient is full resuscitation. Diet Discharge Diet: Heart Healthy, Diabetic Activity Discharge Activity: Limited until seen by PCP Call your provider Call your provider for: Shortness of breath, Chest pain Patient Instructions Patient Instructions Please see her primary care physician within the next week, you could not remember the name of this doctor. Please see her sales project administrator during the next 2 weeks Follow-up with PCP in: 1 week Eric Gomez MD Feb 13, 2017 13:15
[2017-02-13] MEDS ORDERED: CLOP75TA28 PO (13:17)
[2017-02-13] MEDS ORDERED: LIP40 PO (13:17)
[2017-02-13] MEDS ORDERED: ASPI81TA3 PO (13:17)
[2017-02-13] MEDS ORDERED: METO25TA6 PO (13:17)
[2017-02-13] MEDS ORDERED: ISOS120T6 PO (13:17)
--- NOTE | 2017-02-13 13:22 | PCM.DC.MED ---
Discharge Summary Date of Service Feb 13, 2017 Dates of Hospitalization Date of Hospital Admission Feb 11, 2017 at 17:59 Date of Discharge: Feb 13, 2017 Providers: Admitting Physician: Eric Hernández MD Primary Care Physician: Primary Care Clinic,[facility] Attending Physician: Eric Hernández MD Diagnosis at Time of Discharge Diagnosis at Time of Discharge 1. Chest pain, resolved and anticipate a possible Lexiscan tomorrow morning. 2. Coronary artery disease, stable. Patient does have a reversible lesion and the stress test consistent with his LAD disease. He was seen by cardiology on the day of discharge and felt to be stable for medical management and close follow-up. 3. Morbid obesity, stable 4. Diabetes mellitus 2, stable 5. Peripheral neuropathy, stable Patient is full resuscitation. Consultations Dr. Hollis, cardiology Dr. Barron, cardiology Procedures XRay, CTs & MRIs Chest x-ray is low lung volumes otherwise unremarkable. ECG 12 Lead Normal sinus rhythm without ST segment changes. Cardiac Echo Impression Echocardiogram Report Name: MEETA LUNA KStudy Date: Height: 74 in Hospital Exam Location: [facility] Weight: 321 lb Gender: Male BSA: 2.7 m2 : 1960 Age: 57 yrs BP: 105/60 m mHg Reason For Study: Unstable Angina Ordering Physician: HOSPITALIST [facility] Performed By: Krista Davalos Referring Physician: LUZ MARIA HERNANDEZ Interpretation Summary The study quality was technically difficult. The left ventricle is grossly normal size. The ejection fraction is estimated to be 50-55%. Suspect mid posteriolateral wall hypokinesis. The right ventricle is grossly normal size. Right ventricular systolic function is at the lower limits of normal. There is mild tricuspid regurgitation. The right ventricular systolic pressure is estimated at 24 mmHg assuming a right atrial pressure of 8 mm Hg. Invasive Procedures None Other Diagnostics Stress test in the discharge with nuclear scan indicated a small reversible septal defect consistent with possible LAD distribution. The patient was seen by Dr. Barron in the early afternoon on the day of discharge. The patient was stable for continued medical management. Recommendations will be for reinstitution of his cardioprotective medications which she has been off for some time. Brief History This is a 49-year-old male recently moved to [place] to his had 5 coronary stents . He states this all happened in [place] prior to his move. He was recently seen at [facility] and they stopped all his cardiac medications for unclear reasons. The patient notes that he is still taking his diabetes medications, and Lyrica as well as aspirin. He developed chest pressure today while at rest. This began around 2:30 this afternoon describes a chest pressure which was constant and radiated to the jaw and shoulder blades bilaterally. He also became diaphoretic. The pain was not positional nor was increased with deep breathing. He did not feel lightheaded or nauseated. The patient called the ambulance was brought to the emergency department. A nitroglycerin drip was started and this did help diminish the pain as did pain medications. This pain does feel typical for his previous chest pain episodes. The patient is a very vague historian. He denies recent dyspeptic symptoms. He also denies recent exertional chest pain or dyspnea on exertion. His ECG was fairly unremarkable. The patient was started on heparin and discussed with cardiology. He is yet to be seen by cardiology. Hospital Course 1. Chest pain, present on admission and resolved. We will continue medical therapy. Heparin and nitroglycerin drips have been discontinued. His stress test was discussed with . will see the patient today with further recommendations. As patient's strong desire to return home and medical management with close follow-up may be reasonable. 2. Coronary artery disease, present on admission and stable. Plan as above, no changes. 3. Morbid obesity, present on admission active 4. Diabetes mellitus 2, present on admission and active. We will use at bedtime Lantus and correction of lispro check A1c 5. Peripheral neuropathy, present on admission and active. Will resume usual medications when these are ascertained. Patient is full resuscitation. Stepdown to [facility], patient remains inpatient status. Discharge will depend on cardiology consultation and recommendations. Exam Vital Signs (Last) Date Time Temp Pulse Resp B/P Pulse Ox O2 Delivery O2 Flow Rate FiO2 02/13/17 12:25 37.0 66 20 124/84 97 Room Air 02/12/17 21:03 2.00 Exam Patient was seen and examined the day of discharge Test 02/11/17 16:35 02/11/17 18:03 02/11/17 18:17 02/11/17 20:30 Prothrombin Time 10.5sec (8.1-12.5) Prothromb Time International Ratio 0.98ratio Magnesium Level 2.0mg/dL (1.6-2.6) Hold Jeffers Top Tube Received (Received) Sodium Level 140mEq/L (134-144) Potassium Level 4.6mEq/L (3.5-5.2) Chloride Level 103mEq/L (97-108) Carbon Dioxide Level 22mmol/L (18-29) Blood Urea Nitrogen 14mg/dL (6-24) Creatinine 0.67mg/dL (0.76-1.27) Estimat Glomerular Filtration Rate 129mL/min (>59) Glucose Level 93mg/dL (60-99) Calcium Level 8.8mg/dL (8.5-10.1) Total Bilirubin 0.4mg/dL (0.0-1.2) Aspartate Amino Transf (AST/SGOT) 55U/L (0-50) Alanine Aminotransferase (ALT/SGPT) 72U/L (0-44) Alkaline Phosphatase 153U/L (25-150) Total Protein 7.0g/dL (6.4-8.4) Albumin 3.5g/dL (3.4-5.0) Prealbumin 18mg/dL (20-40) Test 02/12/17 04:45 02/12/17 11:55 02/13/17 11:50 Total Creatine Kinase 46U/L (21-232) Creatine Kinase MB 1.0ng/mL (0.0-10.4) Creatine Kinase MB % % (0.0-5.0) Troponin T 0.010ug/L (0.0-0.011) Triglycerides Level 203mg/dL (0-149) Cholesterol Level 210mg/dL (100-199) LDL Cholesterol, Calculated 139.400mg/dL (0-99) VLDL Cholesterol 40.600mg/dL HDL Cholesterol 30mg/dL (>39) Cholesterol/HDL Ratio 7.00 (0.0-4.4) Activated Partial Thromboplast Time 37.8sec (22.8-33.0) White Blood Count 8.8th/mm3 (3.8-10.1) Red Blood Count 5.29mil/mm3 (4.40-5.80) Hemoglobin 16.3g/dL (13.8-17.2) Hematocrit 46.8% (41.0-50.0) Mean Corpuscular Volume 88.5fL (81-100) Mean Corpuscular Hemoglobin 30.8pg (27.0-35.0) Mean Corpuscular Hemoglobin Concent 34.8% (32.0-37.0) Red Cell Distribution Width 13.8% (12.3-15.4) Platelet Count 225bil/L (150-400) Neutrophils (%) (Auto) 61.6% (40-74) Lymphocytes (%) (Auto) 24.7% (14-46) Monocytes (%) (Auto) 9.5% (4-12) Eosinophils (%) (Auto) 2.8% (0-5) Basophils (%) (Auto) 0.5% (0-3) Discharge Medications Discharge Medications Aspirin Chew (Aspirin Chew) 81 Mg Chew 81 MG PO DAILY Prescribed by: ERIC HERNÁNDEZ MD Atorvastatin (Lipitor) 40 Mg Tablet 40 MG PO DAILY Prescribed by: ERIC HERNÁNDEZ MD Clopidogrel (Clopidogrel) 75 Mg Tablet 75 MG PO DAILY Prescribed by: ERIC HERNÁNDEZ MD Insulin Aspart (NovoLOG U100 Insulin Vial) 100 Unit/Ml Mdv 4 UNIT SUBQ TIDWM ( Reported) Insulin Glargine (Lantus U100 Insulin Vial) 100 Unit/Ml Vial 120 UNIT SUBQ HS ( Reported) Isosorbide MN ER (Isosorbide MN ER) 120 Mg Tab.er.24h 120 MG PO QAM Prescribed by: ERIC HERNÁNDEZ MD Liraglutide (Victoza 3-Elvin) 0.6 Mg/0.1 Ml Pen.injctr 1.8 MG SQ HS (Reported) Metoprolol Tartrate (Metoprolol Tartrate) 25 Mg Tablet 25 MG PO BID Prescribed by: ERIC HERNÁNDEZ MD [place]-3/Dha/Epa/Fish Oil (Fish Oil 1,000 mg Softgel) 1 Each Capsule 2 EACH PO BID (Reported) Pregabalin (Lyrica) 225 Mg Capsule 225 MG PO BID (Reported) Followup Plan Disposition: Home Discharge Diet: Heart Healthy, Diabetic Discharge Activity: Limited until seen by PCP Patient Instructions Please see her primary care physician within the next week, you could not remember the name of this doctor. Please see her dye house vat worker during the next 2 weeks Follow-up with PCP in: 1 week Time spent 40 minutes Eric Hernández MD Feb 13, 2017 13:22
--- NOTE | 2017-02-13 14:02 | NUR ---
Inpatient Wound Nurse Orders received for Pressure Injury Prevention protocol and wound care to LLE second toe. CWON RN introduced self to patient and asked what was nature of injury to second toe. Very brief visual exam revealed callous on frontal plane of toe, extensive nail fungus, and what appears to be crusted wound on lateral aspect. Erythema and edema noted to site. Patient stated, "I'm retired [employer], I don't need no nurse telling me what to do with my feet. It's just my diabetes, I will take care of all of it myself when I'm home." Patient was informed that this RN is certified foot care nurse and certified wound care nurse, that if he changed his mind, this RN is available to provide care or recommendations. Patient was advised to follow up with PCP. Patient scowled, again stated, "I can handle it."
--- NOTE | 2017-02-13 14:05 | NUR ---
Social Work: Discharge/Multidisciplinary Rounds D: Pt discussed in multidisciplinary rounds; the patient is medically stable for discharge home today. Capacity for self-care and d/c needs discussed; no needs or concerns for discharge. BROADCAST ENGINEER met with the patient at bedside to confirm discharge plan. Patient states that he is discharging home and has no concerns except that he does not have a ride. BROADCAST ENGINEER explored pt's options: calling friends or family or paying privately for a cab. The patient has not been successful in reaching friends or family and is requesting BROADCAST ENGINEER contact a cab company to pick him up. Pt has no preference for cab companies and understands he will have to pay privately. BROADCAST ENGINEER spoke with [employer] who states that they can come to pickup the patient at 3:00pm and that it is an $85 minimum fee for transport to [place]. BROADCAST ENGINEER confirmed that the patient understands that he will have to provide a credit card or lee before service and understands the minimum fee requirements; pt states he understands. Bedside RN will have patient in the main lobby at 3:00pm to catch his cab. A: Pt who has been ambulating I and participating in his own self-care. P: Pt to discharge home via private pay cab at 3:00pm today. No other discharge needs identified. MIR [place]
--- NOTE | 2017-02-13 17:37 | DRSVH ---
PROCEDURE: 1 DAY PHARMACOLOGICAL STRESS TEST INDICATIONS: Chest pain. COMPARISON: None. Radiopharmaceutical: Rest dose 16.1 mCi of technetium 99 tetrofosmin Stress dose 45.7 mCi of technetium 99 tetrofosmin Patient presentation: Patient is a 49-year-old man with history of coronary artery disease status pos t 5 stents, diabetes, stage III obesity and peripheral neuropathy. he presents with a chest pressure associated diaphoresis. FINDINGS: Pharmacologic stress test: Following informed consent Lexiscan was infused per protocol. Patient had no significant ST segment changes. Patient had 7/10 chest pain. Patient received Aminophyllin Raw data: Normal myocardial tracer uptake. Lung heart ratio is grossly normal. Quantitative gated SPECT: At peak stress ejection fraction is 77%. Rest ejection fraction 71%. No foc al wall motion abnormality seen. Myocardial perfusion imaging: There is a small size moderate intensity mid anterior septal and distal septal reversible perfusion defect. IMPRESSION: Abnormal but low risk pharmacologic stress test with myocardial perfusion imaging. Normal wall motion and left ventricular systolic function. Small sized moderate intensity reversible mid anteroseptal and distal septal perfusion defect consist ent with small area of ischemia. Dictated by: Juhi Dudley M.D. on 02/13/2017 at 17:31 Approved by: Juhi Dudley M.D. on 02/13/2017 at 17:35
== END 2017-02-13 15:00 | disposition home or self-care (01) | DRG 303 ==
LOC: EDBD 16:02 → SED 16:02 → CCU 17:59 → PCC 02-12 16:39
PROVIDERS: ADMIT Hospitalist; ATTEND Hospitalist
DX: I25.110 Atherosclerotic heart disease of native coronary artery with unstable angina pectoris (principal); Z68.41 Body mass index [BMI] 40.0-44.9, adult; E11.42 Type 2 diabetes mellitus with diabetic polyneuropathy; E66.01 Morbid (severe) obesity due to excess calories; G47.33 Obstructive sleep apnea (adult) (pediatric); Z96.653 Presence of artificial knee joint, bilateral; Z95.5 Presence of coronary angioplasty implant and graft; Z79.82 Long term (current) use of aspirin; Z79.4 Long term (current) use of insulin